=== PATIENT | male | born 1960 | race Caucasian/White ===

== ENCOUNTER 2018-03-31 10:34 | Outpatient (CLI) | payer OTHER | END 2018-03-31 10:40 | disposition home or self-care (01) | LOC: LAB 10:34 | DX: N42.89 Other specified disorders of prostate (principal); Z51.81 Encounter for therapeutic drug level monitoring ==

== ENCOUNTER 2018-04-01 08:31 | Outpatient (CLI) | payer OTHER | END 2018-04-01 17:00 | disposition home or self-care (01) | LOC: TOM 08:31 | DX: R97.20 Elevated prostate specific antigen [PSA] (principal); N42.89 Other specified disorders of prostate; E78.2 Mixed hyperlipidemia; E66.3 Overweight; F33.8 Other recurrent depressive disorders; C61 Malignant neoplasm of prostate; Z03.89 Encounter for observation for other suspected diseases and conditions ruled out ==

== ENCOUNTER 2018-04-01 11:07 | Outpatient (CLI) | payer OTHER | END 2018-04-01 14:22 | disposition home or self-care (01) | LOC: NUCLEAR 11:07 | DX: C61 Malignant neoplasm of prostate (principal); R97.21 Rising PSA following treatment for malignant neoplasm of prostate; N42.89 Other specified disorders of prostate; E78.2 Mixed hyperlipidemia | CPT/HCPCS: 78306; A9503 ==